=== PATIENT | female | born 1955 | race African-American/Black ===

== ENCOUNTER 2017-07-20 08:22 | Outpatient (CLI) | payer MEDICARE, MEDICAID | END 2017-07-20 08:23 | disposition home or self-care (01) | LOC: BICMRI 08:22 | PROVIDERS: ATTEND Orthopaedic Surgery | DX: M25.512 Pain in left shoulder (principal); S46.812A Strain of other muscles, fascia and tendons at shoulder and upper arm level, left arm, initial encounter; M19.012 Primary osteoarthritis, left shoulder ==

== ENCOUNTER 2017-09-23 15:58 | Outpatient (CLI) | payer MEDICARE, MEDICAID | END 2017-09-23 15:59 | disposition home or self-care (01) | LOC: BICMAMMO 15:58 | PROVIDERS: ATTEND Nurse Practitioner Family | DX: Z12.31 Encounter for screening mammogram for malignant neoplasm of breast (principal) | CPT/HCPCS: 77063; 77067 ==

== ENCOUNTER 2017-10-19 08:59 | Outpatient (CLI) | payer MEDICARE, MEDICAID | END 2017-10-19 09:00 | disposition home or self-care (01) | LOC: BICMRI 08:59 | PROVIDERS: ATTEND Orthopaedic Surgery | DX: M47.22 Other spondylosis with radiculopathy, cervical region (principal); M25.512 Pain in left shoulder | CPT/HCPCS: 72141 ==

== ENCOUNTER 2018-05-09 12:41 | Outpatient (CLI) | payer MEDICARE ==
--- NOTE | 2018-05-09 13:34 | RAD ---
CHEST TWO VIEWS: INDICATIONS: Dyspnea. FINDINGS: The lung walsh are clear. No infiltrates seen. No evidence of vascular congestion. Heart size is normal. Osseous structures are unremarkable. IMPRESSION: No acute findings. POS: H
== END 2018-05-09 12:42 | disposition home or self-care (01) ==
LOC: RAD 12:41
PROVIDERS: ATTEND Internal Medicine Pulmonary Disease
DX: R06.00 Dyspnea, unspecified (principal)
CPT/HCPCS: 71046

== ENCOUNTER 2018-06-06 12:45 | Outpatient (CLI) | payer MEDICARE | END 2018-06-06 12:46 | disposition home or self-care (01) | LOC: CP 12:45 | PROVIDERS: ATTEND Internal Medicine Pulmonary Disease | DX: J44.9 Chronic obstructive pulmonary disease, unspecified (principal) | CPT/HCPCS: 94060; 94727; 94729 ==

== ENCOUNTER 2018-06-23 08:47 | Emergency (ER) | payer MEDICARE ==
[2018-06-23] MEDS ORDERED: Ketorolac Tromethamine 30 MG/ML VIAL ONE (09:08)
== END 2018-06-23 09:47 | disposition home or self-care (01) ==
LOC: ERS 08:47
DX: S16.1XXA Strain of muscle, fascia and tendon at neck level, initial encounter (principal); J44.9 Chronic obstructive pulmonary disease, unspecified; E78.5 Hyperlipidemia, unspecified; I10 Essential (primary) hypertension; F31.9 Bipolar disorder, unspecified; F17.210 Nicotine dependence, cigarettes, uncomplicated; Z71.6 Tobacco abuse counseling; X50.9XXA Other and unspecified overexertion or strenuous movements or postures, initial encounter
CPT/HCPCS: 96372; 99406; J1885

== ENCOUNTER 2018-10-25 10:52 | Emergency (ER) | payer MEDICARE ==
[2018-10-25 11:39] LABS: #Basophils 0.1 thou/uL (0.0-0.2); #Eosinphils 0.1 thou/uL (0.0-0.7); #Lymphocytes 2.2 thou/uL (1.20-3.40); #Monocytes 0.4 thou/uL (0.11-0.59); #Neutrophils 3.3 thou/uL (1.40-6.50); %Basophils 1.7 % (0.0-1.0); %Lymphocytes 36.8 % (21.0-51.0); %Monocytes 5.8 % (0.0-10.0); %Neutrophils 54.7 % (42.0-75.0); Hemoglobin 15.4 g/dL (12.0-16.0); Mean Corpuscular HGB CONC 33.7 g/dL (32.0-36.0); Mean Corpuscular Hemoglobin 33.5 pg (27.0-31.0); Mean Corpuscular Volume 99.4 fL (78.0-98.0); Mean Platelet Volume 6.8 fL (7.4-10.4); Platelet Count 393 thou/uL (130-400); RBC Distribution Width 12.1 % (11.5-14.5); Red Blood Cell (RBC) Count 4.59 mill/uL (4.20-5.40); White Blood Cell (WBC) Count 6.1 thou/uL (4.8-10.8)
--- NOTE | 2018-10-25 11:48 | RAD ---
Radiograph right shoulder 3 views: DATE: 10/25/2018 HISTORY: 63-year-old female with nontraumatic right shoulder pain FINDINGS: Moderate joint space narrowing and mild osteophytosis at AC joint. No radiographic abnormality of gle nohumeral joint visualized. No fracture or subluxation. No rotator cuff calcification. 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
[2018-10-25 11:53] LABS: ALT (SGPT) 17 U/L (8-55); AST (SGOT) 16 U/L (5-34); Albumin 4.3 g/dL (3.4-4.8); Alkaline Phosphatase 78 U/L (40-150); Anion Gap 16 mmol/L (10-20); BUN (Urea Nitrogen) 18 mg/dL (9.8-20.1); Bilirubin, Total 0.6 mg/dL (0.2-1.2); Calc. Creatinine Clearance 0 mL/min (70-130); Calcium 10.3 mg/dL (7.8-10.44); Carbon Dioxide 22 mmol/L (23-31); Chloride 102 mmol/L (98-107); Estimated GFR-MDRD 81; Globulin 3.7 g/dL (2.4-3.5); Glucose 131 mg/dL (80-115); Potassium 3.8 mmol/L (3.5-5.1); Sodium 136 mmol/L (136-145)
[2018-10-25] MEDS ORDERED: Acetaminophen 500 MG TAB ONE (11:58)
== END 2018-10-25 12:14 | disposition home or self-care (01) ==
LOC: ERS 10:52
DX: M19.011 Primary osteoarthritis, right shoulder (principal); M79.662 Pain in left lower leg; J44.9 Chronic obstructive pulmonary disease, unspecified; E78.5 Hyperlipidemia, unspecified; I10 Essential (primary) hypertension; F17.210 Nicotine dependence, cigarettes, uncomplicated; F31.9 Bipolar disorder, unspecified; Z79.51 Long term (current) use of inhaled steroids; Z79.899 Other long term (current) drug therapy
CPT/HCPCS: 36415; 80053; 85025

== ENCOUNTER 2018-12-28 14:21 | Outpatient (CLI) | payer MEDICARE ==
--- NOTE | 2018-12-28 14:59 | RAD ---
EXAM: Chest 2 views: HISTORY: Dyspnea COMPARISON: 05/09/2018 FINDINGS: There is a normal-sized cardiomediastinal silhouette. There is no evidence of consolidation, mass, or pleural effusion. The bones are unremarkable. IMPRESSION: No evidence of acute cardiopulmonary disease
== END 2018-12-28 14:22 | disposition home or self-care (01) ==
LOC: RAD 14:21
PROVIDERS: ATTEND Internal Medicine Pulmonary Disease
DX: R06.00 Dyspnea, unspecified (principal)
CPT/HCPCS: 71046

== ENCOUNTER 2019-01-20 04:13 | Emergency (ER) | payer MEDICARE ==
--- NOTE | 2019-01-20 07:50 | CT ---
PRELIMINARY REPORT/[facility]/EMERGENCY AFTER HOURS PROCEDURE: PROCEDURE INFORMATION: Exam: CT Head Without Contrast Exam date and time: 01/20/2019 4:44 AM Clinical history: 63 years old, female; Injury or trauma; Initial encounter; Blunt trauma (contusions or hematomas); Without loss of consciousness; Patient HX: 63 year old female brought by ambulance for evaluation of injuries S/P fall which occurred at approx. 0300 this morning at home. PT tripped o nik a bag while trying to get up to use the bathroom. Reports hitting her head, denies losing conscio usness. Not on blood thinners, no new numbness or tingling. PT C/O head pain and knee pain related to the fall, PT says she scraped her knees. TECHNIQUE: Imaging protocol: Computed tomography of the head without contrast. COMPARISON: No relevant prior studies available. FINDINGS: Brain: No mass effect or midline shift. No hemorrhage. Patchy whitte matter hypodensities are nonspec ific but may be seen in small vessel chronic ischemic changes. Ventricles: No ventriculomegaly. Bones/joints: Suspect inferior right orbital wall fracture. No acute fracture. Sinuses: Small right maxillary sinus fluid. Mastoid air cells: Visualized mastoid air cells are well aerated. Soft tissues: Unremarkable. IMPRESSION: No acute intracranial abnormality. Suspect inferior right orbital wall fracture. Small right maxillary sinus fluid. Thank you for allowing us to participate in the care of your patient. Dictated and Authenticated by: Melisa Acuña MD 01/20/2019 5:13 AM Central Time ([place] & [place]) FINAL REPPORT CT BRAIN WITHOUT CONTRAST: I agree with the preliminary report given by Kelsi. POS: [facility]
--- NOTE | 2019-01-20 08:39 | RAD ---
RIGHT KNEE 4 VIEWS: Date: 01/20/19 HISTORY: Fall, right knee pain. FINDINGS/IMPRESSION: No acute fracture or dislocation is seen. Mild degenerative changes are present. POS: TOM
== END 2019-01-20 05:58 | disposition home or self-care (01) ==
LOC: ERS 04:13
DX: S02.31XA Fracture of orbital floor, right side, initial encounter for closed fracture (principal); I10 Essential (primary) hypertension; J44.9 Chronic obstructive pulmonary disease, unspecified; E78.5 Hyperlipidemia, unspecified; F17.210 Nicotine dependence, cigarettes, uncomplicated; F31.9 Bipolar disorder, unspecified; Z79.899 Other long term (current) drug therapy; W18.30XA Fall on same level, unspecified, initial encounter; Y92.008 Other place in unspecified non-institutional (private) residence as the place of occurrence of the external cause
CPT/HCPCS: 70450

== ENCOUNTER 2019-10-29 09:12 | Outpatient (CLI) | payer MEDICARE ==
--- NOTE | 2019-10-29 11:17 | CT ---
CT CHEST WITH CONTRAST: HISTORY: Palpable nodule. COMPARISON: None. FINDINGS: Calcified granuloma of the anterior segment left upper lobe. No suspicious pulmonary nodule. No pne umothorax. NO effusion. Mild atelectasis within the right lung base. The tracheobronchial tree is patent. Thyroid is unremarkable. No mediastinal adenopathy. No abnormal pericardial fluid. There is some hyperenhancement of the gallbladder on the bottom 3-4 images incompletely evaluated. There is a nodule well defined of the left adrenal body measuring up to 14 mm. Thoracic spine is intact. Aortic contour is normal. No focal abnormality over the region of interest marker. No soft tissue mass. No osseous mass. The region of interest markers near the right sternoclavicular joint which is mildly hypertrophic and co uld be a source of the palpable area of interest. No underlying suspicious abnormality. Calcific tendinosis of the left rotator cuff. IMPRESSION: 1. Near the region of interest marker over the right paracentral chest is the right 1st costosternal joint which is mildly hypertrophic with osteophyte formation could be the source of the palpable abn ormality. No suspicious malignant process is appreciated. 2. Left adrenal nodule measuring 14 mm as well as some hyperenhancement of the gallbladder incomplet cha evaluated on this exam. A dedicated adrenal protocol CT or MRI is recommended and this can also evaluate the gallbladder at the same time. 3. No suspicious pulmonary nodule. 4. No acute intrathoracic abnormality. No evidence for pneumonia. POS: H
[2019-10-29] MEDS ORDERED: Iopamidol 370 76% 100 ML VIAL ONE (11:53)
== END 2019-10-29 09:13 | disposition home or self-care (01) ==
LOC: BICCT 09:12
DX: R91.1 Solitary pulmonary nodule (principal); R05 Cough; J44.9 Chronic obstructive pulmonary disease, unspecified; R06.02 Shortness of breath; E78.2 Mixed hyperlipidemia; R09.89 Other specified symptoms and signs involving the circulatory and respiratory systems; G47.09 Other insomnia; F31.61 Bipolar disorder, current episode mixed, mild; I25.10 Atherosclerotic heart disease of native coronary artery without angina pectoris; F17.210 Nicotine dependence, cigarettes, uncomplicated; M25.50 Pain in unspecified joint; I10 Essential (primary) hypertension; E27.8 Other specified disorders of adrenal gland; Z68.25 Body mass index [BMI] 25.0-25.9, adult
CPT/HCPCS: 36415; 71260; 80053; 80061; 82306; 82565; 84443; 85025; Q9967

== ENCOUNTER 2019-11-18 11:17 | Inpatient (IN) | payer MEDICARE, OTHER ==
--- NOTE | 2019-11-18 11:49 | RAD ---
RADIOGRAPH CHEST 1 VIEW: DATE: 11/18/2019 HISTORY: 64 year old female smoker with fatigue FINDINGS: The thoracic aorta is tortuous and ectatic. There is no evidence of airspace density, pulmonary edema , or pneumothorax. The lateral costophrenic angles are not effaced. No cardiomegaly. No interval change since 12/28/2018. IMPRESSION: 1) No acute cardiopulmonary findings. 2) ectasia of thoracic aorta.
[2019-11-18 12:14] LABS: Hemoglobin 12.8 g/dL (12.0-16.0); Mean Corpuscular HGB CONC 33.3 g/dL (32.0-36.0); Mean Corpuscular Hemoglobin 34.7 pg (27.0-31.0); Mean Platelet Volume 7.8 fL (7.4-10.4); Platelet Count 393 thou/uL (130-400); RBC Distribution Width 13.7 % (11.5-14.5); Red Blood Cell (RBC) Count 3.69 mill/uL (4.20-5.40)
[2019-11-18 12:16] LABS: INR-International Normal Ratio 0.9; PTT 27.9 sec (22.9-36.1); Prothrombin Time 12.4 sec (12.0-14.7)
[2019-11-18 12:30] LABS: Eosinophils 2 % (0-10); Lymphocytes 20 % (21-51); MDiff Complete? YES; Monocytes 5 % (0-10); Neutrophil 70 % (42-75); Platelet Morphology Comment Appears Adequate; Reactive Lymphocytes 2 % (0-10); Vacuoles SLIGHT; White Blood Cell (WBC) Count 10.6 thou/uL (4.8-10.8)
[2019-11-18 12:32] LABS: ALT (SGPT) 561 U/L (8-55); AST (SGOT) 573 U/L (5-34); Albumin 3.4 g/dL (3.4-4.8); Alkaline Phosphatase 1234 U/L (40-110); Anion Gap 11 mmol/L (10-20); BUN (Urea Nitrogen) 8 mg/dL (9.8-20.1); Bilirubin, Total 21.8 mg/dL (0.2-1.2); CK (CPK) 115 U/L (29-168); Calc. Creatinine Clearance 0 mL/min (70-130); Calcium 9.3 mg/dL (7.8-10.44); Carbon Dioxide 29 mmol/L (23-31); Chloride 99 mmol/L (98-107); Estimated GFR-MDRD Greater than 90; Globulin 3.3 g/dL (2.4-3.5); Glucose 91 mg/dL (80-115); Lipase 38 U/L (8-78); Potassium 3.2 mmol/L (3.5-5.1); Protein, Total 6.7 g/dL (6.0-8.3); Sodium 136 mmol/L (136-145)
[2019-11-18 12:34] LABS: Bilirubin Large (Negative); Blood, Urine Trace (Negative); Glucose, Urine (Dipstick) Negative (Negative); Ketone, Urine Trace mg/dL (Negative); Leukocyte Trace (Negative); Nitrite Negative (Negative); Protein, Urine (Dipstick) 30 mg/dL (Neg-Trace); Specific Gravity, Urine 1.025 (1.005-1.030); pH, Urine 6.5 (5.0-9.0)
[2019-11-18 12:38] LABS: Clarity Clear (Clear)
--- NOTE | 2019-11-18 13:41 | ULT ---
RIGHT UPPER QUADRANT ULTRASOUND: INDICATIONS: History of right upper quadrant abdominal pain with fatigue and dysuria. FINDINGS: There is layering gallbladder sludge gallbladder wall thickening and dilatation of the common and int rahepatic biliary ductal system. The common bile duct measures on average 9.6 mm. The liver measures 18 cm. No sonographic Wahl sign is reported. The pancreas is largely obscured. The visualized aspec ts appear within normal limits. Appropriate flow is seen within the portal vein. No free fluid is jo ntified. The right kidney measures 11.4 cm in length without evidence of hydronephrosis. IMPRESSION: Layered gallbladder sludge with mild gallbladder wall thickening but no positive sonographic sign or definite pericholecystic fluid. Findings are equivocal for acute cholecystitis. There is dilatation o f the common bile duct and intrahepatic biliary ducts. Distal obstructing process such as stone or ma ss is not excluded. Would recommend consideration for an MRCP examination to evaluate for distal obst ructing sludge, stone or mass. Alternatively an endoscope retrograde cholangiopancreatography may be helpful and a gastroenterology consultation will be necessary. Mild hepatomegaly. POS: BH
[2019-11-18] MEDS ORDERED: Bisacodyl 10 MG SUPP PR PRN (15:54)
[2019-11-18] MEDS ORDERED: Calcium Carbonate 500 MG ChewTAB PO PRN (15:54)
[2019-11-18] MEDS ORDERED: Senokot S 8.6-50 MG TAB PO PRN (15:54)
[2019-11-18] MEDS ORDERED: Guaifenesin DM 100-10/5 ML UDCUP PO PRN (15:54)
[2019-11-18 16:10] LABS: Hep B Surf Ag Non-Reactive S/CO (NonReactive)
[2019-11-18 16:15] LABS: Acetaminophen Less than 6.0 mcg/mL (10.0-30.0); Alcohol Less than 10 mg/dL (Less than 10); Salicylate Less than 8.0 mg/dL (15.0-30.0)
--- NOTE | 2019-11-18 16:54 | HP ---
REASON FOR ADMISSION: Possible obstructive jaundice. HISTORY OF PRESENTING ILLNESS: The patient gives a history of noticing her eyes being yellow and her urine being dark from last 3 days. She also developed bilateral lower quadrant abdominal pain. This pain was 2 to 3 out of 10 in intensity and was more of a colic. She also noticed some mild pain in the epigastric region, which was 1 to 2 out of 10. The patient has had loss of appetite and was unable to eat any food from last 2 days. She is feeling very dizzy and weak and finally developed a headache too. All of this prompted her to come back to the emergency room. She had come on the 28 of October here after having a mechanical fall when her foot got hung up with her carry bag and fell at home with face down. She was found to have had right orbital fracture and has seen a surgeon and has had outpatient appointment to see a surgeon in [place] as well. She was advised to be careful while sneezing. Otherwise, no surgical intervention was suggested for the same. No complaints of nausea. Has not started any new medication. The patient states she quit drinking 2 years back. PAST MEDICAL AND SURGICAL HISTORY: COPD, hypertension, dyslipidemia, history of hep C from last 15 years and has not had any treatment. 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 Prior history of upper endoscopy with esophageal dilatation done; colonoscopy x2 with no evidence of malignancy as far as she knows, the last one was 5 years back; tubal ligation; history of bipolar disorder; prior alcohol abuse, quit 2 years back. CURRENT MEDICATIONS: The patient is on 1. Atorvastatin 10 mg p.o. daily. 2. Symbicort inhaler 160/4.5 mcg 2 puffs twice daily. 3. Albuterol inhaler q.6 hourly p.r.n. 4. Hydralazine 25 mg twice daily. 5. Isosorbide dinitrate 20 mg twice daily. 6. Clonidine 0.1 mg p.o. twice daily. ALLERGIES: TO ASPIRIN. PERSONAL HISTORY: Smokes half pack a day. Quit drinking alcohol 2 years back prior to which patient was drinking more than 30 beers daily for almost 20 years or so. Does not abuse drugs. FAMILY HISTORY: Mother at the age of 76. She has had history of diabetes and hypertension. Father at the age of 79. He has had the same medical problems as her mom, that is diabetes and hypertension. CODE STATUS: Full. Power of erisa attorney is her daughter, Ms. Selena Marinelli. REVIEW OF SYSTEMS: CONSTITUTIONAL: Negative for weight loss or gain, ability to conduct usual activities. SKIN: Negative for rash, itching. EYES: Negative for double vision, pain. ENT/MOUTH: Negative for nose bleeding, neck stiffness, pain, tenderness. CARDIOVASCULAR: Negative for palpitations, dyspnea on exertion, orthopnea. RESPIRATORY: Negative for shortness of breath, wheezing, cough, hemoptysis, fever or night sweats. GASTROINTESTINAL: Negative for poor appetite, abdominal pain, heartburn, nausea, vomiting, constipation, or diarrhea. GENITOURINARY: Negative for urgency, frequency, dysuria, nocturia. MUSCULOSKELETAL: Negative for pain, swelling. NEUROLOGIC/PSYCHIATRIC: Negative for anxiety, depression. ALLERGY/IMMUNOLOGIC: Negative for skin rash, bleeding tendency. PHYSICAL EXAMINATION: GENERAL: The patient is a 64-year-old female who is currently not in any acute distress. VITAL SIGNS: Blood pressure 104/60, pulse 84 per minute, respiratory rate 18 per minute, temperature 98.9 degrees Fahrenheit, saturating 97% on room air. NECK: Supple, no elevated JVD. EYES: The pupils are reacting to light. There is severe icterus. ORAL CAVITY: Mucous membranes are dry. No exudates or congestion. CARDIOVASCULAR: S1, S2 heard, regular rhythm. RESPIRATORY: Air entry 1+ bilateral. Scattered rhonchi plus bilateral. ABDOMEN: Soft, bowel sounds heard. Mild tenderness on deep palpation in the right upper quadrant. The patient has some tenderness in the suprapubic area as well. No rigidity or guarding. EXTREMITIES: No peripheral edema or calf tenderness. VASCULAR: Peripheral pulses 1+ bilateral, no ischemic ulcerations or gangrene. CENTRAL NERVOUS SYSTEM: No gross focal deficits noted. The patient is alert, awake, oriented well. PSYCHIATRIC: Patient's mood is euthymic. No hallucinations or delusions. LABORATORY DATA: Chest x-ray done shows no acute cardiopulmonary abnormality. Right upper quadrant ultrasound done shows layered gallbladder sludge with mild gallbladder wall thickening, but no positive sonographic sign or definite pericholecystic fluid. Findings are equivocal for acute cholecystitis. There is dilatation of the common bile duct and intrahepatic biliary ducts. Common bile duct measures 9.6 mm. MRCP is recommended. Mild hepatomegaly. White count of 10, H and H 12 and 38, platelet count is 393, MCV is 104 with 70% neutrophils. PT, INR, PTT 12, 0.9 and 27. Potassium 3.2, serum bicarb 29, BUN 8, creatinine 0.7. Total bilirubin 21.8, AST 573, ALT 561, alkaline phosphatase 1234. Ammonia 48. Albumin 3.4. Lipase is 38. CLINICAL IMPRESSION AND PLAN: Patient will be admitted to medical floor for likely obstructive jaundice. MRCP stat has been ordered. Dr. Tian has been consulted from the ER. She will be kept n.p.o. for now. Normal saline at 100 mL per hour. We will also continue clonidine, hydralazine, Symbicort inhaler and DuoNeb q.6 hourly for now. The patient has had prior heavy alcohol usage and quit 2 years back. She also has history of hepatitis C from last 15 years and has not had any further workup on that. We will obtain a hepatitis C quantitative PCR along with genotype as well. We will continue to closely monitor her on medical floor. The patient also mentioned at the end of my interview that she has lost nearly 20 pounds in the last 2 months now. Job ID: [id number]
[2019-11-18 17:41] VITALS: BMI 25.0
[2019-11-18] MEDS ORDERED: Morphine 2 MG/ML SYRINGE SLOW IVP PRN (18:15)
[2019-11-18] MEDS: Piperacillin/Tazobactam 3.375 GM in Sodium Chloride 0.9% 100 ML IVPB SCH ×2 (18:25→23:15)
[2019-11-18] MEDS: Sodium Chloride 0.9% 1,000 ML IV SCH (18:26)
[2019-11-18] MEDS: Morphine 4 MG/ML VIAL SLOW IVP PRN ×2 (18:36→22:27)
--- NOTE | 2019-11-18 18:49 | MRI ---
MRI OF ABDOMEN WITHOUT CONTRAST MRCP: History: Abdominal pain, abnormal gallbladder ultrasound. FINDINGS: Absence of IV contrast reduces the sensitivity of the exam. There is extrahepatic biliary duct dilatation of the common bile duct measuring 12 mm in diameter. No gallstones or cholelithiasis are seen. There is mild thickening of the gallbladder wall. A 1 cm mild ly hyper T2 intense focus is seen in the right lobe of the liver which does not have the same intensi ty of CSF, to be characterized as a simple cyst. The spleen, pancreas, and right adrenal gland normal. Tiny bilateral renal cysts are present. There is a 2 cm left adrenal nodule with signal dropout on out of phase images, consistent with a shanelle ign adenoma. No free fluid or lymphadenopathy is seen. The aorta is normal caliber. The bone marrow signal is norm al. IMPRESSION: Intrahepatic biliary duct dilatation without cholelithiasis or choledocholithiasis. Further evaluatio n with ERCP would be helpful. 2. Indeterminate 1 cm right liver lobe lesion. Follow up should be performed with a contrast enhanced MRI in 3 months. 3. Mild gallbladder wall thickening. If there is concern for acute cholecystitis, a HIDA scan should be performed. 4. Left adrenal adenoma. POS: OFF
[2019-11-18] MEDS: Mometasone 200 MCG/Formoterol 5 MCG 120 PUFF INHALER INH SCH (18:51)
[2019-11-18 19:46] LABS: HBSAg Index 0.12 S/CO (0-0.99)
[2019-11-18] MEDS: cloNIDine 0.1 MG TAB PO SCH (20:50)
[2019-11-18] MEDS: hydrALAZINE 25 MG TAB PO SCH (20:51)
[2019-11-18] MEDS: Famotidine 20 MG TAB PO SCH (20:51)
--- NOTE | 2019-11-18 22:07 | CON ---
DATE OF CONSULTATION: 11/18/2019 REASON FOR CONSULTATION: Elevated LFTs, right upper quadrant abdominal pain. CONSULTING PROVIDER: Alfredo Burrows. HISTORY OF PRESENT ILLNESS: The patient is a 64-year-old female with past medical history of COPD, hypertension, hyperlipidemia, bipolar disorder, and chronic hepatitis C infection (naive to treatment), presenting with complaints of jaundice and right upper quadrant abdominal pain. She states that she was in her usual state of health until approximately 3 days ago when she began having increasing right upper quadrant/midepigastric abdominal pain that she characterized as a sharp-type sensation, was intermittent, occurring 3 times per day, was nonradiating and reached a severity of 8/10. The pain was worse with increased physical activity and having a bowel movement with having to strain in order to facilitate defecation, better with actually eating a meal. This was associated with increased diarrhea, having approximately 1-3 solid bowel movements per day ([place] 4) with intermittent straining in order to facilitate defecation. This was also associated with increased scleral icterus and weight loss of approximately 20 pounds over the last 3 months unintentionally. With the worsening of this abdominal pain and the worsening yellowing of her eyes as well as discoloration of her urine, it prompted her to seek healthcare assistance at the [facility] ER. While in the ER, her workup was notable for significantly elevated LFTs concerning for an obstructive-type process within the biliary tree and subsequently admitted to the hospital for further evaluation. Currently, the patient states that she has increased dizziness, especially with movements. Has been having dysuria for the last 2 to 3 days in addition to nausea and vomiting of nonbloody emesis. She also complains of intermittent dysphagia that has been present intermittently for the last 10 years and for which the patient had undergone an upper endoscopy approximately 10 years ago that they "stretched my throat out for." Of note, the patient was also diagnosed with chronic hepatitis C infection in [place] around 10 years ago. At that time, she had an MRI of her liver that she states had "a spot" somewhere along the anterior aspect of her liver. This was never followed up, and she did not seek treatment for her chronic hepatitis C at that time. Currently, she denies any fevers, chills, hematemesis, melena, hematochezia, or constipation. REVIEW OF SYSTEMS: A 10-category review of systems was obtained with all responses negative except for the pertinent positives as listed in HPI. PAST MEDICAL HISTORY: As per HPI. PAST SURGICAL HISTORY: EGD, colonoscopy, bilateral tubal ligation. FAMILY HISTORY: Denies any GI malignancies. SOCIAL HISTORY: Smokes tobacco, 1/2 pack per day. Quit drinking alcohol 2 years ago but had been drinking 20-30 beers daily for approximately 20 years. Currently denies any illicit drug use. OUTPATIENT MEDICATIONS: Reviewed. ALLERGIES: ASPIRIN/NSAIDS. PHYSICAL EXAMINATION: VITAL SIGNS: Temperature is 99.7, pulse 70, blood pressure 161/84, respiratory rate 16, saturating 97% on room air. GENERAL: The patient was lying in bed in no acute distress. Alert and oriented x4. HEENT: Normocephalic, atraumatic. NECK: Supple. No JVD or scleral icterus noted. CARDIOVASCULAR: Regular rate and rhythm with no discernible murmurs, gallops, or rubs. RESPIRATORY: Clear to auscultation bilaterally with no discernible wheezes or rales abdomen normoactive bowel sounds. Soft, nondistended. Tenderness to palpation in the midepigastric right upper quadrant and right lower quadrant. EXTREMITIES: No cyanosis, clubbing, or edema. LABORATORY DATA: CBC with a white blood cell count of 10.6, hemoglobin 12.8, hematocrit 38.4, platelets 393. INR 0.9. Chemistry with a sodium 136, potassium 3.2, chloride 99, CO2 of 29, BUN 8, creatinine 0.7, glucose 91. AST 573, ALT 561, alkaline phosphatase 1234, total bilirubin 21.8, albumin 3.4, lipase 38. IMAGING DATA: Right upper quadrant ultrasound was obtained on November 18, 2019, which showed layering sludge within the gallbladder and gallbladder wall thickening but no other evidence of cholecystitis. Dilatation of both the intra and extrahepatic biliary tree was seen with the common bile duct measuring 9.6 mm in size. Mild hepatomegaly was also noted, but no observed stone was seen within the common bile duct. ASSESSMENT AND PLAN: The patient is a 64-year-old female with past medical history of chronic obstructive pulmonary disease, hypertension, hyperlipidemia, bipolar disorder, chronic hepatitis C infection, stated liver lesion 10 years ago on an MRI, presenting with right upper quadrant abdominal pain and elevated LFTs concerning for choledocholithiasis versus pancreatic/hepatic malignancy. Elevated LFTs/right upper quadrant abdominal pain. The patient is presenting with a fairly acute onset of right upper quadrant abdominal pain characterized as a sharp-type sensation and reaching a severity of 8/10. On reviewing the patient's chart, she had relatively normal LFTs approximately 3 to 4 weeks ago when she presented to the ER secondary to sustaining a fall and injury to the orbit of her eye, now presenting with significantly elevated LFTs in a fairly obstructive-type pattern, but with relatively little pain associated with the degree of the hyperbilirubinemia. At this time, her LFTs show primarily a cholestatic pattern, although with the significant elevation in all of them, again is concerning for an obstructive-type pattern which could be secondary to a pancreatic or hepatic malignancy (likely pancreatic if both intra and extra hepatic biliary systems are dilated) or choledocholithiasis. Differential could also include cholangiocarcinoma, especially with the significantly elevated alkaline phosphatase and bilirubin. RECOMMENDATIONS: 1. Would obtain an MRCP of the liver for further evaluation of her liver, pancreas and the biliary system looking for hepatic malignancy, pancreatic malignancy, and possible choledocholithiasis. 2. Would continue to trend her LFTs. 3. We will place the patient on Zosyn 3.375 g every 6 hours for antibiotic prophylaxis related to possible choledocholithiasis. 4. Would make the patient n.p.o. at midnight in anticipation of ERCP tomorrow with possible stent placement based on the findings on MRCP. 5. Pain control per primary team. We will continue to follow. Please call with any questions. Job ID: [id number]
[2019-11-18 23:05] LABS: Amphetamine Not Detected (NotDetected); Barbiturates Screen Not Detected (NotDetected); Benzodiazepine Screen Not Detected (NotDetected); Cocaine Metabolite Screen Detected (NotDetected); Medtox Control Line Valid? VALID (VALID); Medtox Reader # READER 4; Methadone Not Detected (NotDetected); Methamphetamine Not Detected (NotDetected); Opiate Screen Detected (NotDetected); Oxycodone Screen Not Detected (NotDetected); Phencyclidine (PCP) Not Detected (NotDetected); THC/Cannabinoid Screen Detected (NotDetected); Tricyclic Screen Not Detected (NotDetected)
[2019-11-19] MEDS: Sodium Chloride 0.9% 1,000 ML IV SCH ×3 (02:41→14:06)
[2019-11-19] MEDS: Piperacillin/Tazobactam 3.375 GM in Sodium Chloride 0.9% 100 ML IVPB SCH ×3 (05:08→18:40)
[2019-11-19] MEDS: Morphine 4 MG/ML VIAL SLOW IVP PRN ×2 (05:09→12:48)
[2019-11-19 05:57] LABS: ALT (SGPT) 438 U/L (8-55); AST (SGOT) 397 U/L (5-34); Albumin 2.8 g/dL (3.4-4.8); Alkaline Phosphatase 998 U/L (40-110); Anion Gap 12 mmol/L (10-20); BUN (Urea Nitrogen) 6 mg/dL (9.8-20.1); Bilirubin, Total 20.4 mg/dL (0.2-1.2); Calc. Creatinine Clearance 87 mL/min (70-130); Calcium 8.2 mg/dL (7.8-10.44); Carbon Dioxide 26 mmol/L (23-31); Chloride 102 mmol/L (98-107); Estimated GFR-MDRD Greater than 90; Globulin 2.5 g/dL (2.4-3.5); Glucose 83 mg/dL (80-115); Protein, Total 5.3 g/dL (6.0-8.3); Sodium 137 mmol/L (136-145)
[2019-11-19 06:05] LABS: Critical Call Chemistry NUR.GEG@0605; Potassium 2.9 mmol/L (3.5-5.1)
[2019-11-19 06:10] LABS: #Basophils 0.1 thou/uL (0.0-0.2); #Eosinphils 0.4 thou/uL (0.0-0.7); #Lymphocytes 4.1 thou/uL (1.20-3.40); #Monocytes 0.4 thou/uL (0.11-0.59); #Neutrophils 3.9 thou/uL (1.40-6.50); %Eosinophils 4.9 % (0.0-10.0); %Lymphocytes 45.6 % (21.0-51.0); %Monocytes 4.3 % (0.0-10.0); %Neutrophils 44.3 % (42.0-75.0); Band 2 % (5-11); Eosinophils 5 % (0-10); Hemoglobin 10.4 g/dL (12.0-16.0); Hypochromia SLIGHT = 6-15 cells (100X) (0-5/hpf); Lymphocytes 30 % (21-51); MDiff Complete? YES; Mean Corpuscular HGB CONC 34.4 g/dL (32.0-36.0); Mean Corpuscular Hemoglobin 36.4 pg (27.0-31.0); Mean Platelet Volume 7.7 fL (7.4-10.4); Monocytes 8 % (0-10); Neutrophil 55 % (42-75); Platelet Count 312 thou/uL (130-400); Platelet Morphology Comment Appears Adequate; RBC Distribution Width 13.8 % (11.5-14.5); Red Blood Cell (RBC) Count 2.87 mill/uL (4.20-5.40); White Blood Cell (WBC) Count 8.9 thou/uL (4.8-10.8)
[2019-11-19] MEDS ORDERED: Potassium Chloride 40 MEQ in Sodium Chloride 0.9% 250 ML 250 ML IVPB SCH (07:00)
[2019-11-19] MEDS: Mometasone 200 MCG/Formoterol 5 MCG 120 PUFF INHALER INH SCH ×2 (07:08→18:44)
[2019-11-19 07:45] LABS: SARS-CoV-2 NAA Rapid Test Not Detected (NotDetected)
[2019-11-19] MEDS ORDERED: Indomethacin 50 MG SUPP ONE (08:22)
[2019-11-19] MEDS ORDERED: Iothalamate Meglumine 60% 50 ML VIAL FS ONE (08:22)
[2019-11-19] MEDS ORDERED: Fentanyl 100 MCG/2 ML VIAL ONE ×2 (08:47→11:03)
[2019-11-19] MEDS ORDERED: Potassium Chloride 20 MEQ TAB PO SCH ×2 (09:00→14:15)
[2019-11-19] MEDS ORDERED: Rocuronium Bromide 10 MG/ML (10ML VIAL) ONE (10:01)
[2019-11-19] MEDS ORDERED: Lidocaine 1% PF 5 ML VIAL ONE (10:01)
[2019-11-19] MEDS ORDERED: Ondansetron PF 4 MG/2 ML Vial ONE (10:01)
[2019-11-19] MEDS ORDERED: PROPOFOL 200 MG/20 ML VIAL ONE (10:01)
[2019-11-19] MEDS ORDERED: Glycopyrrolate 0.2 MG/ML 5 ML SYRINGE ONE (10:01)
[2019-11-19] MEDS: cloNIDine 0.1 MG TAB PO SCH ×2 (10:41→21:55)
[2019-11-19] MEDS: Famotidine 20 MG TAB PO SCH ×2 (10:41→21:55)
[2019-11-19] MEDS: hydrALAZINE 25 MG TAB PO SCH ×2 (10:41→21:55)
[2019-11-19 10:56] LABS: HBCM Index 0.13 S/CO (0-0.79); Hep A IgM AB Non-Reactive (NonReactive); Hep A IgM S/CO 0.59 S/CO (0-0.79); Hepatitis B Core IgM Abs Non-Reactive (NonReactive)
[2019-11-19 11:19] LABS: Hep C IgG Ab Reflex HepC Qnt (NonReactive); Hep C Index 10.99 S/CO (0-0.79)
[2019-11-19] MEDS: Ondansetron PF 4 MG/2 ML Vial IVP PRN ×2 (12:45→20:09)
--- NOTE | 2019-11-19 13:14 | PDOC.HOSPP ---
- Subjective Encounter Date: 11/19/19 Encounter Time: 09:00 Subjective: abd pain is better, no nausea or vomiting is going down for ercp no c/o palp or chest pain - Objective Vital Signs & Weight: Vital Signs (12 hours) Temp Pulse Resp BP Pulse Ox 11/19/19 07:29 98.6 F 59 L 18 126/78 98 11/19/19 07:05 56 L 16 99 11/19/19 04:00 98.4 F 56 L 18 122/74 99 Weight Weight 141 lb 1 oz I&O: 11/18/19 11/19/19 11/20/19 06:59 06:59 06:59 Intake Total 1100 Balance 1100 Result Diagrams: 11/19/19 05:24 11/19/19 05:24 Hospitalist ROS - Medication Medications: Active Medications Generic Name Dose Route Start Last Admin Trade Name Freq PRN Reason Stop Dose Admin Albuterol/Ipratropium 3 ml 11/18/19 19:00 11/19/19 07:05 Duoneb NEB 3 ml [id number] JANENE Administration Clonidine 0.1 mg 11/18/19 21:00 11/19/19 10:41 Catapres PO Not Given BID JANENE Famotidine 20 mg 11/18/19 21:00 11/19/19 10:41 Pepcid PO Not Given BID JANENE Guaifenesin/Dextromethorphan 15 ml 11/18/19 15:54 11/18/19 20:51 Robitussin Dm PO 15 ml Q4H PRN Administration Cough Hydralazine HCl 25 mg 11/18/19 21:00 11/19/19 10:41 Apresoline PO Not Given BID JANENE Sodium Chloride 1,000 mls @ 100 mls/hr 11/18/19 16:00 11/19/19 05:11 Normal Saline 0.9% IV 1,000 mls .Q10H JANENE Administration Piperacillin Sod/Tazobactam 100 mls @ 200 mls/hr 11/18/19 18:00 11/19/19 12: 49 Sod 3.375 gm/ Sodium Chloride IVPB 100 mls Q6HR JANENE Administration Mometasone Furoate/Formoterol Fumar 2 puff 11/18/19 18:30 11/19/19 07:08 Dulera 200 Mcg/5 Mcg Inhaler INH 2 puff BID-RT JANENE Administration Morphine Sulfate 2 mg 11/18/19 18:25 11/19/19 12:48 Morphine SLOW IVP 2 mg Q4H PRN Administration Mild Pain (1-3) Ondansetron HCl 4 mg 11/18/19 15:54 11/19/19 12:45 Zofran IVP 4 mg Q6H PRN Administration Nausea/Vomiting - Exam General Appearance: awake alert Eye: PERRL, anicteric sclera ENT: no oropharyngeal lesions, dry oral mucosa Neck: supple, no JVD Heart: RRR, no murmur Respiratory: no wheezes, no rales, rhonchi Gastrointestinal: soft, non-tender, non-distended, normal bowel sounds, no guarding, no rigidity Extremities: no cyanosis, no edema Neurological: cranial nerve grossly intact, no focal deficits Psychiatric: normal affect, A&O x 3 Hosp A/P (1) Jaundice Code(s): R17 - UNSPECIFIED JAUNDICE Status: Acute (2) COPD (chronic obstructive pulmonary disease) Status: Chronic Qualifiers: COPD type: chronic bronchitis (3) HTN (hypertension) Code(s): I10 - ESSENTIAL (PRIMARY) HYPERTENSION Status: Chronic Qualifiers: Hypertension type: essential hypertension Qualified Code(s): I10 - Essential (primary) hypertension (4) Hepatitis C Code(s): B19.20 - UNSPECIFIED VIRAL HEPATITIS C WITHOUT HEPATIC COMA Status: Chronic Qualifiers: Viral hepatitis chronicity: chronic Hepatic coma status: without hepatic coma Qualified Code(s): B18.2 - Chronic viral hepatitis C (5) Substance abuse Code(s): F19.10 - OTHER PSYCHOACTIVE SUBSTANCE ABUSE, UNCOMPLICATED Status: Acute (6) Tobacco abuse Code(s): Z72.0 - TOBACCO USE Status: Chronic (7) Elevated LFTs Code(s): R79.89 - OTHER SPECIFIED ABNORMAL FINDINGS OF BLOOD CHEMISTRY Status : Acute - Plan await ERCP results continue empiric zosyn, dulera inh, duonebs, clonidine and hydralazine hemostable lft's are very slowly trending down replace potassium iv then po x 3 doses blood for hep C quantitative titers and genotype was taken 11/17 MRCP did not reveal a mass or gross obstructive etiology in the ducts.
--- NOTE | 2019-11-19 14:25 | RAD ---
ERCP: HISTORY: Choledocholithiasis. FINDINGS/IMPRESSION: Six spot fluoroscopic intraoperative images during an ERCP demonstrate opacification of dilated commo n bile duct and hepatic ducts and their branches, and placement of a biliary stent. POS: JUANYA
--- NOTE | 2019-11-19 16:28 | OP ---
DATE OF PROCEDURE: 11/19/2019 PROCEDURES PERFORMED: 1. Endoscopic retrograde cholangiopancreatography with sphincterotomy. 2. Biliary bladder brushings. 3. Stent placement. INDICATIONS FOR PROCEDURE: Elevated LFTs, abnormal GI imaging showing dilation of the biliary tree. DESCRIPTION OF PROCEDURE: After the risks and benefits of the procedure were explained to the patient including risks of bleeding, infection, perforation, reactions to anesthesia, aspiration, post-ERCP pancreatitis, and/or pain, informed consent was obtained. The patient was then taken to the endoscopy suite where general anesthesia was administered followed by endotracheal tube intubation. Once the patient was adequately sedated and intubated, she was maneuvered into the prone position in anticipation of the ERCP. Once in adequate position, the standard duodenoscope was introduced into the mouth with intubation of the esophagus, stomach, and the proximal small intestines with the findings listed below. The patient tolerated the procedure well with no immediate perioperative complications. On conclusion of the procedure, all equipment was removed from the patient and she was transferred to PACU in satisfactory condition. FINDINGS: EGD findings: Limited views were obtained during the EGD portion of this exam of the esophagus, stomach, and the proximal small intestines. However, of the views obtained using the side-viewing nature of the duodenoscope, normal-appearing mucosa was seen in the proximal, mid, and distal esophagus. Normal-appearing mucosa was also seen at the gastric cardia, GE junction, fundus, incisura, and antrum. Also normal-appearing mucosa was seen in the duodenal bulb and second portion of the duodenum. There was no evidence of erosions, ulcerations, mass lesions, or active/recent bleeding. ERCP findings: The ampulla of Vater was successfully identified within the second portion of the duodenum. Then, using a 5-mm Ultratome sphincterotome, the ampulla was successfully cannulated, but with a moderate amount of difficulty. During the course of the procedure, a guidewire was placed within the pancreatic duct in order to facilitate placing a guidewire within the extrahepatic biliary tree. Once the extrahepatic biliary tree was successfully cannulated, a cholangiogram was then performed for adequate visualization of the common bile duct as well as the intrahepatic biliary tree. On initial cholangiogram, there was a stricture noted midway through the common bile duct, measuring approximately 1.5 to 2 cm in length. Adequate filling was seen of the intrahepatic and common bile ducts with the common bile duct measuring approximately 1.2 cm proximal to the stricture and 7 to 8 mm distal to the stricture. The guidewire that was then placed within the intrahepatic biliary tree where the sphincterotome was then swapped out for a 9- to 12-mm biliary balloon successfully using exchange technique. Once the balloon was in adequate position, balloon sweeps were then performed for possible choledocholithiasis or removal of the offending obstructive stone. However, with multiple sweeps, no stone or stone debris was obtained. The balloon was then exchanged for a biliary brush, which was then again advanced over the guidewire. The biliary brush was then employed within the common bile duct at the level of the biliary stricture with multiple passes achieved. It was then withdrawn and the tip was placed in a specimen jar for evaluation of cytology. A biliary stent was then placed within the common bile duct, so a 7 cm 10-[place] biliary stent was successfully placed across the high-grade biliary stricture with a large amount of black-colored bile seen draining from the stent afterwards. Upon fluoroscopy imaging after the stent placement, good drainage of the proximal biliary system was achieved, at which point all equipment was removed from the patient and then she was transferred to PACU. IMPRESSION: A high-grade biliary stricture within the common bile duct, measuring 1.5 cm to 2 cm in length, now status post biliary brushings and successful placement of a 7 cm 10-[place] biliary stent. RECOMMENDATIONS: 1. We will continue to trend the patient's LFTs for adequate drainage of the biliary system and resolution of the obstruction. 2. Continue to monitor clinically for resolution of her abdominal pain and for evaluation of possible post-ERCP pancreatitis. 3. Would continue antibiotics for the next 24 hours given instrumentation today. 4. Would follow up on the cytology from the biliary brushings for evaluation of possible malignancy (high degree of suspicion for cholangiocarcinoma). 5. Pain control per primary team. 6. Could start the patient on a clear liquid diet and advance as tolerated. We will continue to follow. Please call with any questions. Job ID: [id number]
[2019-11-19] MEDS: Lactated Ringer's 1,000 ML IV SCH (19:45)
[2019-11-19] MEDS ORDERED: Lactated Ringer's 1,000 ML IV SCH (19:45)
[2019-11-19] MEDS ORDERED: Morphine 4 MG/ML VIAL SLOW IVP SCH (20:00)
[2019-11-19] MEDS: Potassium Chloride 20 MEQ TAB PO SCH (21:54)
--- NOTE | 2019-11-19 22:20 | PRG ---
DATE OF SERVICE: 11/19/2019 SUBJECTIVE: I was notified by nursing this evening that the patient has been having epigastric pain after the ERCP. The patient reports that the pain is fairly severe, aching pain in the epigastric region, it is different than the pain she came in with. She vomited some bilious material once. She has been making good urine output. OBJECTIVE: VITAL SIGNS: Temperature 99.6, pulse 61, blood pressure 182/81. GENERAL: She is in no acute distress. Alert and oriented x3. LUNGS: Clear to auscultation bilaterally. HEART: Regular rate and rhythm without murmur. ABDOMEN: Soft. Mild tenderness in the epigastric region without guarding. She is nondistended. Bowel sounds are present. EXTREMITIES: No lower extremity edema. IMPRESSION: Epigastric pain and nausea and vomiting. She most likely has mild post endoscopic retrograde cholangiopancreatography pancreatitis. We will treat her as such. RECOMMENDATIONS: 1. I will order for a lactose Ringer's bolus and then to follow with 150 mL/h. Her lungs are clear. She is breathing comfortably. Her abdomen is nondistended and has mild tenderness. 2. N.p.o. for now. If her pain is better tomorrow, she can go back on clear liquid diet. 3. Check lipase in the morning. 4. Pain control per the primary service. She is receiving morphine. 5. Incentive spirometry. 6. She is on antibiotic Zosyn. Job ID: [id number]
[2019-11-20] MEDS ORDERED: Promethazine HCl 25 MG in Sodium Chloride 0.9% 50 ML IVPB PRN (00:23)
[2019-11-20] MEDS: Morphine 4 MG/ML VIAL SLOW IVP PRN ×2 (00:29→14:04)
[2019-11-20] MEDS: Piperacillin/Tazobactam 3.375 GM in Sodium Chloride 0.9% 100 ML IVPB SCH ×4 (00:56→18:21)
[2019-11-20] MEDS: Potassium Chloride 20 MEQ TAB PO SCH (02:45)
[2019-11-20] MEDS: Lactated Ringer's 1,000 ML IV SCH ×6 (02:50→21:20)
[2019-11-20 06:19] LABS: ALT (SGPT) 299 U/L (8-55); AST (SGOT) 123 U/L (5-34); Albumin 2.8 g/dL (3.4-4.8); Alkaline Phosphatase 861 U/L (40-110); Anion Gap 10 mmol/L (10-20); BUN (Urea Nitrogen) 6 mg/dL (9.8-20.1); Bilirubin, Total 7.4 mg/dL (0.2-1.2); Calc. Creatinine Clearance 102 mL/min (70-130); Calcium 8.4 mg/dL (7.8-10.44); Carbon Dioxide 27 mmol/L (23-31); Chloride 101 mmol/L (98-107); Estimated GFR-MDRD Greater than 90; Globulin 2.9 g/dL (2.4-3.5); Glucose 83 mg/dL (80-115); Potassium 3.5 mmol/L (3.5-5.1); Protein, Total 5.7 g/dL (6.0-8.3); Sodium 134 mmol/L (136-145)
[2019-11-20 06:25] LABS: #Basophils 0.1 thou/uL (0.0-0.2); #Eosinphils 0.1 thou/uL (0.0-0.7); #Lymphocytes 5.7 thou/uL (1.20-3.40); #Monocytes 0.4 thou/uL (0.11-0.59); #Neutrophils 5.2 thou/uL (1.40-6.50); %Basophils 1.1 % (0.0-1.0); %Eosinophils 0.9 % (0.0-10.0); %Lymphocytes 49.4 % (21.0-51.0); %Monocytes 3.6 % (0.0-10.0); %Neutrophils 44.9 % (42.0-75.0); Hemoglobin 10.6 g/dL (12.0-16.0); Mean Corpuscular HGB CONC 32.6 g/dL (32.0-36.0); Mean Corpuscular Hemoglobin 34.5 pg (27.0-31.0); Platelet Count 395 thou/uL (130-400); RBC Distribution Width 13.7 % (11.5-14.5); Red Blood Cell (RBC) Count 3.07 mill/uL (4.20-5.40); White Blood Cell (WBC) Count 11.6 thou/uL (4.8-10.8)
[2019-11-20 06:32] LABS: Lipase 2121 U/L (8-78)
[2019-11-20] MEDS: Mometasone 200 MCG/Formoterol 5 MCG 120 PUFF INHALER INH SCH ×2 (06:56→18:41)
[2019-11-20] MEDS: Famotidine 20 MG TAB PO SCH ×2 (09:27→21:12)
[2019-11-20] MEDS: hydrALAZINE 25 MG TAB PO SCH ×2 (09:27→21:12)
[2019-11-20] MEDS: cloNIDine 0.1 MG TAB PO SCH ×2 (09:27→21:14)
--- NOTE | 2019-11-20 12:35 | PDOC.HOSPP ---
- Subjective Encounter Date: 11/20/19 Encounter Time: 07:45 Subjective: no abd pain or nausea this morning feels better no wheezing or sob - Objective Vital Signs & Weight: Vital Signs (12 hours) Temp Pulse Resp BP BP Pulse Ox 11/20/19 11:30 99.7 F H 72 16 137/84 97 11/20/19 09:25 97 11/20/19 07:40 99.2 F 73 16 143/85 H 96 11/20/19 06:57 64 18 99 11/20/19 04:00 98.0 F 84 20 134/80 98 11/20/19 02:53 166/90 H 11/20/19 02:48 180/80 H Weight Weight 141 lb 1 oz I&O: 11/19/19 11/20/19 11/21/19 06:59 06:59 06:59 Intake Total 1100 3250 Balance 1100 3250 Result Diagrams: 11/20/19 05:33 11/20/19 05:33 Hospitalist ROS - Medication Medications: Active Medications Generic Name Dose Route Start Last Admin Trade Name Freq PRN Reason Stop Dose Admin Albuterol/Ipratropium 3 ml 11/18/19 19:00 11/20/19 06:57 Duoneb NEB 3 ml [id number] JANENE Administration Clonidine 0.1 mg 11/18/19 21:00 11/20/19 09:27 Catapres PO 0.1 mg BID JANENE Administration Famotidine 20 mg 11/18/19 21:00 11/20/19 09:27 Pepcid PO 20 mg BID JANENE Administration Guaifenesin/Dextromethorphan 15 ml 11/18/19 15:54 11/18/19 20:51 Robitussin Dm PO 15 ml Q4H PRN Administration Cough Hydralazine HCl 25 mg 11/18/19 21:00 11/20/19 09:27 Apresoline PO 25 mg BID JANENE Administration Piperacillin Sod/Tazobactam 100 mls @ 200 mls/hr 11/18/19 18:00 11/20/19 05: 50 Sod 3.375 gm/ Sodium Chloride IVPB 100 mls Q6HR JANENE Administration Lactated Ringer's 1,000 mls @ 150 mls/hr 11/19/19 19:45 11/20/19 09:37 Lactated Ringer's IV Not Given .Q6H40M JANENE Promethazine HCl 25 mg/ Sodium 51 mls @ 204 mls/hr 11/20/19 00:23 11/20/19 00 :42 Chloride IVPB 51 mls Q6H PRN Administration Nausea Mometasone Furoate/Formoterol Fumar 2 puff 11/18/19 18:30 11/20/19 06:56 Dulera 200 Mcg/5 Mcg Inhaler INH 2 puff BID-RT JANENE Administration Morphine Sulfate 2 mg 11/18/19 18:25 11/20/19 00:29 Morphine SLOW IVP 2 mg Q4H PRN Administration Mild Pain (1-3) Ondansetron HCl 4 mg 11/18/19 15:54 11/19/19 20:09 Zofran IVP 4 mg Q6H PRN Administration Nausea/Vomiting Sodium Chloride 10 ml 11/19/19 09:00 11/20/19 09:27 Flush - Normal Saline IVF 10 ml Q12HR JANENE Administration - Exam General Appearance: awake alert Eye: scleral icterus ENT: no oropharyngeal lesions Neck: supple, no JVD Heart: RRR, no gallops Respiratory: no wheezes, no rales, rhonchi Gastrointestinal: soft, non-distended, normal bowel sounds, no guarding, no rigidity Extremities: no cyanosis, no edema Neurological: cranial nerve grossly intact, no focal deficits Psychiatric: normal affect, A&O x 3 Hosp A/P (1) Jaundice Code(s): R17 - UNSPECIFIED JAUNDICE Status: Acute (2) COPD (chronic obstructive pulmonary disease) Status: Chronic Qualifiers: COPD type: chronic bronchitis (3) HTN (hypertension) Code(s): I10 - ESSENTIAL (PRIMARY) HYPERTENSION Status: Chronic Qualifiers: Hypertension type: essential hypertension Qualified Code(s): I10 - Essential (primary) hypertension (4) Hepatitis C Code(s): B19.20 - UNSPECIFIED VIRAL HEPATITIS C WITHOUT HEPATIC COMA Status: Chronic Qualifiers: Viral hepatitis chronicity: chronic Hepatic coma status: without hepatic coma Qualified Code(s): B18.2 - Chronic viral hepatitis C (5) Substance abuse Code(s): F19.10 - OTHER PSYCHOACTIVE SUBSTANCE ABUSE, UNCOMPLICATED Status: Acute (6) Tobacco abuse Code(s): Z72.0 - TOBACCO USE Status: Chronic (7) Elevated LFTs Code(s): R79.89 - OTHER SPECIFIED ABNORMAL FINDINGS OF BLOOD CHEMISTRY Status : Acute - Plan had ERCP with stent placed for biliary stricture 11/18, LFT's are trending down, t.bili is down to 7 this am. post ercp abd pain and nausea has resolved, is on iv fluids, is npo, may advance to liq diet if ok with GI counselled pt to ambulate in hallway continue empiric zosyn, dulera inh, duonebs, clonidine and hydralazine hemostable blood for hep C quantitative titers and genotype was taken 11/17 MRCP did not reveal any mass. further w/u for biliary stricture per GI advice, await cytology results from biliary brushings taken with ercp
[2019-11-20] MEDS ORDERED: Morphine 4 MG/ML VIAL SLOW IVP PRN (14:37)
[2019-11-21] MEDS: Piperacillin/Tazobactam 3.375 GM in Sodium Chloride 0.9% 100 ML IVPB SCH ×5 (00:37→23:35)
[2019-11-21] MEDS: Lactated Ringer's 1,000 ML IV SCH ×3 (04:39→19:36)
[2019-11-21 06:19] LABS: ALT (SGPT) 197 U/L (8-55); AST (SGOT) 69 U/L (5-34); Albumin 2.7 g/dL (3.4-4.8); Alkaline Phosphatase 614 U/L (40-110); Anion Gap 11 mmol/L (10-20); BUN (Urea Nitrogen) 5 mg/dL (9.8-20.1); Bilirubin, Total 5.4 mg/dL (0.2-1.2); Calc. Creatinine Clearance 109 mL/min (70-130); Calcium 8.4 mg/dL (7.8-10.44); Carbon Dioxide 25 mmol/L (23-31); Chloride 101 mmol/L (98-107); Estimated GFR-MDRD Greater than 90; Globulin 2.7 g/dL (2.4-3.5); Glucose 74 mg/dL (80-115); Lipase 662 U/L (8-78); Potassium 3.1 mmol/L (3.5-5.1); Protein, Total 5.4 g/dL (6.0-8.3); Sodium 134 mmol/L (136-145)
[2019-11-21 06:24] LABS: Band 3 % (5-11); Eosinophils 1 % (0-10); Hemoglobin 9.3 g/dL (12.0-16.0); Hypochromia SLIGHT = 6-15 cells (100X) (0-5/hpf); Lymphocytes 16 % (21-51); MDiff Complete? YES; Macrocytosis SLIGHT = 6-15 cells (100X) (0-5/hpf); Mean Corpuscular HGB CONC 32.2 g/dL (32.0-36.0); Mean Corpuscular Hemoglobin 34.6 pg (27.0-31.0); Mean Platelet Volume 7.7 fL (7.4-10.4); Monocytes 6 % (0-10); Neutrophil 74 % (42-75); Platelet Count 428 thou/uL (130-400); Platelet Morphology Comment Appears Adequate; RBC Distribution Width 13.4 % (11.5-14.5); Red Blood Cell (RBC) Count 2.68 mill/uL (4.20-5.40); White Blood Cell (WBC) Count 15.4 thou/uL (4.8-10.8)
--- NOTE | 2019-11-21 07:03 | PRG ---
DATE OF SERVICE: 11/20/2019 SUBJECTIVE: Ms. Milligan has had no fever overnight. She had some pain medicine around 3 o'clock. Nurse reports she said it did not control her pain, but presently, she states she has no pain and she would like to try to have some liquids. She has been doing ice without problems. She has had no vomiting. She is voiding. Her urine is still dark. MEDICATIONS: Reviewed. She is on LR at 150 an hour. She is on Zosyn, p.r.n. Phenergan, and Pepcid for ulcer prophylaxis. OBJECTIVE: VITAL SIGNS: Temperature is 99.7 to 99.2, pulse is 71, and blood pressure 123/76. LUNGS: Clear. HEART: Regular rate and rhythm. ABDOMEN: Soft, nondistended, and nontender. There is no rebound. There is no guarding. LABORATORY DATA: White count 11, hemoglobin 10.6, MCV is 104, and platelet count 395. INR 0.9. Sodium 134, potassium 3.5, BUN and creatinine are 16 and 0.58. Bilirubin came down from 20 to 7.4, AST to 123, ALT to 299, alkaline phosphatase to 861. Serum protein 5.7, albumin is 2.8, lipase is 2121 was 38 yesterday. Drug screen showed cocaine and cannabinoids on admission. Serology, hep C antibody positive. Imaging, there is no comment of mass in the pancreas. Ultrasound showed mild hepatomegaly, gallbladder sludge, dilated common and intrahepatic bile ducts. MRCP was vague read. RECOMMENDATIONS: 1. We will ask Dr. Smith to review MRCP from yesterday. We will get a CA 19-9, CEA. Brushings showed atypical cells. We will also check for autoimmune pancreatitis bile duct strictures. There is also a possibility with her cocaine use this could be an ischemic stricture. 2. Post ERCP pancreatitis, seems to be improving. We will start a liquid diet. If there is nothing to be gained on review of the MRI, we can always consider getting a CT scan through the pancreas with thin cuts. We will follow along with you. Job ID: [id number]
[2019-11-21] MEDS: Mometasone 200 MCG/Formoterol 5 MCG 120 PUFF INHALER INH SCH ×2 (07:52→18:35)
[2019-11-21] MEDS: Famotidine 20 MG TAB PO SCH ×2 (08:29→21:17)
[2019-11-21] MEDS: hydrALAZINE 25 MG TAB PO SCH ×2 (08:29→21:17)
[2019-11-21] MEDS: cloNIDine 0.1 MG TAB PO SCH ×2 (08:29→21:15)
--- NOTE | 2019-11-21 12:34 | PRG ---
DATE OF SERVICE: 11/21/2019 SUBJECTIVE: The patient has complete resolution of abdominal pain. She has no nausea or vomiting. She wants to eat. PHYSICAL EXAMINATION: VITAL SIGNS: Temperature is 98.5, blood pressure is 116/77, pulse of 67. GENERAL: She is alert, conversant without any distress. HEENT: Mildly icteric sclerae. Oropharynx is moist. CV: Normal S1, S2. Regular rate and rhythm. CHEST: Breath sounds. ABDOMEN: Soft and nontender. She has active bowel sounds. No distention. No tympany. EXTREMITIES: No edema. LABORATORY DATA: WBCs 15.4, hemoglobin 9.3, and platelet count of 428. Sodium 134, potassium 3.1, creatinine 0.54, bilirubin 5.4, ALT 197, alkaline phosphatase 614, CEA 1.12. CA-19-9 pending. ASSESSMENT: 1. Obstructive jaundice with distal biliary stricture noted, status post ERCP with stent placement. Further review of the MRCP revealed a pancreatic mass in the head of the pancreas. This is likely the source of her biliary obstruction. Primary pancreatic neoplasm is suspected, but not confirmed. Cytology was nondiagnostic. 2. Obstructive jaundice, resolving with biliary stent placement. LFT is trending down. 3. Post ERCP pancreatitis, clinically resolved. RECOMMENDATIONS: 1. Advance diet. 2. If the patient does well, can be discharged to home on Cipro 500 mg b.i.d. x7 days for biliary stent protection. 3. We will arrange outpatient endoscopic ultrasound to further define pancreatic lesion. Job ID: [id number] MTDD
--- NOTE | 2019-11-21 13:01 | PDOC.HOSPP ---
- Subjective Encounter Date: 11/21/19 Encounter Time: 08:00 Subjective: no abd pain, nausea or vomiting is tolerating oral liq diet says she is ambulating - Objective Vital Signs & Weight: Vital Signs (12 hours) Temp Pulse Resp BP BP Pulse Ox 11/21/19 11:18 98.5 F 67 16 116/77 96 11/21/19 08:29 78 125/79 11/21/19 07:53 78 16 98 11/21/19 07:17 98.6 F 70 16 125/79 98 11/21/19 04:00 98.3 F 75 20 139/65 98 Weight Weight 141 lb 1 oz I&O: 11/20/19 11/21/19 11/22/19 06:59 06:59 06:59 Intake Total 3250 3875 Output Total 2400 400 Balance 3250 1475 -400 Result Diagrams: 11/21/19 05:35 11/21/19 05:35 Hospitalist ROS - Medication Medications: Active Medications Generic Name Dose Route Start Last Admin Trade Name Efrain PRN Reason Stop Dose Admin Albuterol/Ipratropium 3 ml 11/18/19 19:00 11/21/19 07:53 Duoneb NEB 3 ml [id number] JANENE Administration Clonidine 0.1 mg 11/18/19 21:00 11/21/19 08:29 Catapres PO 0.1 mg BID JANENE Administration Famotidine 20 mg 11/18/19 21:00 11/21/19 08:29 Pepcid PO 20 mg BID JANENE Administration Guaifenesin/Dextromethorphan 15 ml 11/18/19 15:54 11/18/19 20:51 Robitussin Dm PO 15 ml Q4H PRN Administration Cough Hydralazine HCl 25 mg 11/18/19 21:00 11/21/19 08:29 Apresoline PO 25 mg BID JANENE Administration Piperacillin Sod/Tazobactam 100 mls @ 200 mls/hr 11/18/19 18:00 11/21/19 12: 45 Sod 3.375 gm/ Sodium Chloride IVPB 100 mls Q6HR JANENE Administration Lactated Ringer's 1,000 mls @ 150 mls/hr 11/19/19 19:45 11/21/19 04:39 Lactated Ringer's IV 1,000 mls .Q6H40M JANENE Administration Promethazine HCl 25 mg/ Sodium 51 mls @ 204 mls/hr 11/20/19 00:23 11/20/19 00 :42 Chloride IVPB 51 mls Q6H PRN Administration Nausea Mometasone Furoate/Formoterol Fumar 2 puff 11/18/19 18:30 11/21/19 07:52 Dulera 200 Mcg/5 Mcg Inhaler INH 2 puff BID-RT JANENE Administration Ondansetron HCl 4 mg 11/18/19 15:54 11/19/19 20:09 Zofran IVP 4 mg Q6H PRN Administration Nausea/Vomiting Sodium Chloride 10 ml 11/19/19 09:00 11/21/19 08:30 Flush - Normal Saline IVF 10 ml Q12HR JANENE Administration - Exam General Appearance: awake alert Eye: PERRL, anicteric sclera ENT: no oropharyngeal lesions, moist mucosa Neck: supple, no JVD Heart: RRR, no murmur Respiratory: no wheezes, no rales Gastrointestinal: soft, non-tender, non-distended, normal bowel sounds Extremities: no cyanosis, no edema Neurological: cranial nerve grossly intact, no focal deficits Psychiatric: normal affect, A&O x 3 Hosp A/P (1) Jaundice Code(s): R17 - UNSPECIFIED JAUNDICE Status: Acute (2) COPD (chronic obstructive pulmonary disease) Status: Chronic Qualifiers: COPD type: chronic bronchitis (3) HTN (hypertension) Code(s): I10 - ESSENTIAL (PRIMARY) HYPERTENSION Status: Chronic Qualifiers: Hypertension type: essential hypertension Qualified Code(s): I10 - Essential (primary) hypertension (4) Hepatitis C Code(s): B19.20 - UNSPECIFIED VIRAL HEPATITIS C WITHOUT HEPATIC COMA Status: Chronic Qualifiers: Viral hepatitis chronicity: chronic Hepatic coma status: without hepatic coma Qualified Code(s): B18.2 - Chronic viral hepatitis C (5) Substance abuse Code(s): F19.10 - OTHER PSYCHOACTIVE SUBSTANCE ABUSE, UNCOMPLICATED Status: Acute (6) Tobacco abuse Code(s): Z72.0 - TOBACCO USE Status: Chronic (7) Elevated LFTs Code(s): R79.89 - OTHER SPECIFIED ABNORMAL FINDINGS OF BLOOD CHEMISTRY Status : Acute - Plan had ERCP with stent placed for biliary stricture 8/24, LFT's are trending down, t.bili is down to 5 this am. post ercp abd pain and nausea has resolved, is on iv fluids, on oral diet to ambulate in hallway continue empiric zosyn, dulera inh, duonebs, clonidine and hydralazine hemostable blood for hep C quantitative titers and genotype was taken 11/17 MRCP shows suspected pancreatic head mass, for outpt EUS. DC plan later today or in am, oral cipro x 7 days on discharge
[2019-11-21 14:14] LABS: Hep C PCR-Quant HCV Not Detected IU/mL (.)
[2019-11-21 15:33] LABS: ANA Symphony (Qualitative) POSITIVE (Negative); ANA Symphony (Quantitative) 2.6 Ratio (< 0.7 Negative); EliA Vaculitis New Method **** NEW METHOD ****; Jo-1 IgG Antibody Less than 0.3 EliAU/mL (<7 Negative); Mitochondrial Ab 0.9 U/mL (<4 Negative); RNP70 IgG Antibody Less than 0.3 EliAU/mL (<7 Negative); SSA/Ro IgG Antibody Less than 0.3 EliAU/mL (<7 Negative); SSB/La IgG Antibody 0.3 EliAU/mL (<7 Negative); Scleroderma-70 IgG Antibody Less than 0.6 EliAU/mL (<7 Negative); Smith D IgG Antibody 0.9 EliAU/mL (<7 Negative); dsDNA IgG Antibody Less than 0.5 IU/mL (<10 Negative)
[2019-11-22] MEDS: Lactated Ringer's 1,000 ML IV SCH ×2 (01:01→08:55)
[2019-11-22 06:10] LABS: ALT (SGPT) 155 U/L (8-55); AST (SGOT) 55 U/L (5-34); Albumin 2.7 g/dL (3.4-4.8); Alkaline Phosphatase 528 U/L (40-110); Anion Gap 9 mmol/L (10-20); BUN (Urea Nitrogen) 6 mg/dL (9.8-20.1); Bilirubin, Total 4.1 mg/dL (0.2-1.2); Calc. Creatinine Clearance 100 mL/min (70-130); Calcium 8.3 mg/dL (7.8-10.44); Carbon Dioxide 28 mmol/L (23-31); Chloride 105 mmol/L (98-107); Estimated GFR-MDRD Greater than 90; Globulin 2.7 g/dL (2.4-3.5); Glucose 91 mg/dL (80-115); Lipase 325 U/L (8-78); Potassium 3.4 mmol/L (3.5-5.1); Protein, Total 5.4 g/dL (6.0-8.3); Sodium 139 mmol/L (136-145)
[2019-11-22] MEDS: Piperacillin/Tazobactam 3.375 GM in Sodium Chloride 0.9% 100 ML IVPB SCH (06:19)
[2019-11-22] MEDS: Mometasone 200 MCG/Formoterol 5 MCG 120 PUFF INHALER INH SCH (06:57)
[2019-11-22] MEDS: cloNIDine 0.1 MG TAB PO SCH (08:26)
[2019-11-22] MEDS: hydrALAZINE 25 MG TAB PO SCH (08:26)
[2019-11-22] MEDS: Famotidine 20 MG TAB PO SCH (08:26)
[2019-11-22 11:23] VITALS: BP 144/84; TEMP 98.3
--- NOTE | 2019-11-22 11:55 | PRG ---
DATE OF SERVICE: 11/22/2019 SUBJECTIVE: Ms. Milligan has no abdominal pain today. No nausea or vomiting. OBJECTIVE: VITAL SIGNS: Temperature is 98.3, pulse 78, blood pressure 144/84. GENERAL: She is in no acute distress. Alert and oriented x3. ABDOMEN: Soft, nontender, and nondistended. Bowel sounds are present. IMPRESSION: 1. 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 Her bilirubin has dropped from 21 to 4. This plastic stent will need to be exchanged in the next couple of months. 2. Pancreatic head mass. Re-read of the MRI does suggest a mass in the head of the pancreas associated with this biliary stricture. Brushings from the bile duct only showed a few atypical cells and is nondiagnostic. Next step will be endoscopic ultrasound to confirm diagnosis and if this is confirmed to be a malignancy and the surrounding structures are not involved, then resection will be her option for cure. 3. Mild post ERCP pancreatitis, improving. RECOMMENDATIONS: 1. She will discharge home today. 2. We will refer her for outpatient endoscopic ultrasound likely in [place] and then potentially referral on to Surgery or Oncology from there. 3. She will complete a course of ciprofloxacin. 4. Follow up in GI clinic. 5. She was noted to have hepatitis C antibody positive and her RNA and genotype are pending. 6. On presentation, her urine cannabinoids and cocaine were positive and cessation is recommended. Job ID: [id number]
--- NOTE | 2019-11-22 14:26 | DIS ---
DATE OF ADMISSION: 11/18/2019 DATE OF DISCHARGE: 11/22/2019 PRIMARY DISCHARGE DIAGNOSES: Possible head of pancreas mass with biliary stricture status post endoscopic retrograde cholangiopancreatography for obstructive jaundice, post endoscopic retrograde cholangiopancreatography mild pancreatitis, resolved; chronic obstructive pulmonary disease with ongoing smoking; hypertension; substance abuse; chronic hep C, which has been untreated and elevated liver function tests due to obstructive jaundice. PROCEDURES DONE DURING HOSPITALIZATION: The patient has had an MRCP done on 11/18/2019, which showed intrahepatic biliary ductal dilatation, indeterminate 1 cm right liver lobe lesion, mild gallbladder wall thickening, left adrenal adenoma. She has had ERCP done on 11/19/[address] Mil Marin. She has had sphincterotomy with stent placement and biliary brushings were obtained. Bile duct brushings revealed rare atypical cells. Discharge H and H of 9 and 28, platelet count 428, MCV is 107, white count of 15 on , BUN 6, creatinine 0.5. Total bilirubin 4.1. Admitting total bilirubin was 21.8. AST on discharge is 55, ALT 155, alkaline phosphatase is 528 on the day of discharge. Admitting AST 573, ALT 561, alkaline phosphatase 1234. All the last three readings were on admission. Albumin is 3.4. Urine tox screen was positive for cocaine metabolites and marijuana. JANEL screen was positive. She also has anticentromere IgG antibody at 32, which is high. Antimitochondrial antibody was 0.9. Hepatitis B surface antigen nonreactive. Hepatitis B core IgM antibody nonreactive. Hepatitis A IgM antibody nonreactive. Hepatitis C genotype and quantitative RNA are pending. COVID-19 PCR done on 11/19/2019, is not detected. DISCHARGE MEDICATIONS: 1. Symbicort inhaler 160/4.5 mcg 2 puffs twice daily. 2. Hydralazine 25 mg twice daily. 3. Clonidine 0.1 mg p.o. twice daily. 4. Albuterol inhaler q.6 hourly p.r.n. 5. Isosorbide dinitrate 20 mg daily. 6. Levaquin 500 mg p.o. daily for another 6 days. ALLERGIES: TO ASPIRIN. INPATIENT CONSULT: Dr. Mil Marin for Gastroenterology. DISCHARGE PLAN: The patient to follow up with Dr. Marin in 2 weeks. She needs to follow up with her primary care physician in 1 week. BRIEF COURSE DURING HOSPITALIZATION: The patient initially got admitted on the with complaints of jaundice with discoloration high colored urine. The patient also had abdominal pain. In the epigastric area, multiple workups were done in the ER. Her initial total bilirubin was 21. Ultrasound of the right upper quadrant done did not reveal any acute gallbladder pathology or stones. The common bile duct was around 9 mm and in view of this, an MRCP was obtained. This initial reading on the MRCP did not reveal any mass, but had dilated biliary ducts. The patient was taken for ERCP with sphincterotomy and stent placement by Dr. Mil Marin. There was a stricture noted midway through the common bile duct measuring approximately 1.5 to 2 cm in length. There were no stones or stone debris were noted. Biliary stent was then placed within the common bile duct across the high-grade biliary stricture with a large amount of black colored bile seen draining from the stent afterwards. Post this procedure, the patient developed mild procedure-related pancreatitis with abdominal pain. This completely resolved. She was kept n.p.o. postprocedure and was aggressively fluid hydrated. At the time of discharge, the patient is tolerating oral low-fat diet. She is ambulating in the hallway. She was counseled with regard to complete smoking cessation and to stop using cocaine. She is advised to follow up with Dr. Mil Marin in 2 weeks for possible outpatient endoscopic ultrasound for likely pancreatic head mass, which is being suspected at present. Her bile duct brushings have not revealed any outright malignancy, but there were atypical cells seen. She has been cleared for discharge by Gastroenterology. Job ID: [id number]
--- NOTE | 2019-11-24 15:12 | EKG ---
Test Reason : Blood Pressure : / mmHG Vent. Rate : 075 BPM Atrial Rate : 075 BPM P-R Int : 176 ms QRS Dur : 084 ms QT Int : 412 ms P-R-T Axes : 063 -11 074 degrees QTc Int : 460 ms Normal sinus rhythm Low voltage QRS Septal infarct , age undetermined Abnormal ECG Confirmed by RUSTY MOLINA DO ([id number]), image editor INGRID FOFANA ([id number]) on 11/24/2019 3:12:10 PM Referred By: Confirmed By:RUSTY MOLINA DO
== END 2019-11-22 11:15 | disposition home or self-care (01) | DRG 444 ==
LOC: ERS 11:17 → T4-B 16:47
PROVIDERS: ADMIT Internal Medicine; ATTEND Internal Medicine
PROC: 0F798DZ Dilation of Common Bile Duct with Intraluminal Device, Via Natural or Artificial Opening Endoscopic (ICD-10-PCS; principal; 2019-11-19)
PROC: 0FD98ZX Extraction of Common Bile Duct, Via Natural or Artificial Opening Endoscopic, Diagnostic (ICD-10-PCS; 2019-11-19)
PROC: BF111ZZ Fluoroscopy of Biliary and Pancreatic Ducts using Low Osmolar Contrast (ICD-10-PCS; 2019-11-19)
DX: K83.1 Obstruction of bile duct (principal); K85.90 Acute pancreatitis without necrosis or infection, unspecified; K91.89 Other postprocedural complications and disorders of digestive system; K86.89 Other specified diseases of pancreas; Z20.828 Contact with and (suspected) exposure to other viral communicable diseases; J44.9 Chronic obstructive pulmonary disease, unspecified; I10 Essential (primary) hypertension; E78.5 Hyperlipidemia, unspecified; F31.9 Bipolar disorder, unspecified; F19.10 Other psychoactive substance abuse, uncomplicated; B18.2 Chronic viral hepatitis C; F17.210 Nicotine dependence, cigarettes, uncomplicated; Z79.51 Long term (current) use of inhaled steroids; Z88.8 Allergy status to other drugs, medicaments and biological substances; Y83.8 Other surgical procedures as the cause of abnormal reaction of the patient, or of later complication, without mention of misadventure at the time of the procedure
CPT/HCPCS: 36415; 71045; 74181; 74330; 76705; 80053; 80074; 80306; 80307; 81003; 81015; 82140; 82378; 82550; 82787; 83516; 83690; 84484; 85025; 85610; 85730; 86038; 86225; 86235; 86301; 87522; 87635; 87902; 88104; 88112; 93005; 94640; 94664; 96360; C1769; J2270; J2405; J2543; J2550; J2704; J3010; J3480; J3490; J7050; J7620; U0002; U0003

== ENCOUNTER 2020-06-01 10:31 | Inpatient (IN) | payer MEDICARE ==
[2020-06-01] MEDS ORDERED: Ondansetron PF 4 MG/2 ML Vial ONE ×2 (11:18→14:01)
[2020-06-01] MEDS ORDERED: Morphine 4 MG/ML VIAL ONE ×2 (11:18→14:01)
[2020-06-01 11:34] LABS: INR-International Normal Ratio 0.9; PTT 30.8 sec (22.9-36.1); Prothrombin Time 12.7 sec (12.0-14.7)
[2020-06-01 11:42] LABS: #Basophils 0.1 thou/uL (0.0-0.2); #Lymphocytes 1.6 thou/uL (1.20-3.40); #Monocytes 0.4 thou/uL (0.11-0.59); #Neutrophils 4.3 thou/uL (1.40-6.50); %Basophils 0.8 % (0.0-1.0); %Eosinophils 0.6 % (0.0-10.0); %Lymphocytes 24.8 % (21.0-51.0); %Monocytes 6.8 % (0.0-10.0); Hemoglobin 15.8 g/dL (12.0-16.0); MDiff Complete? YES; Macrocytosis SLIGHT = 6-15 cells (100X) (0-5/hpf); Mean Corpuscular HGB CONC 34.2 g/dL (32.0-36.0); Mean Platelet Volume 6.6 fL (7.4-10.4); Platelet Count 429 thou/uL (130-400); Platelet Morphology Comment Appears Increased; Polychromasia SLIGHT = 2-3 cells (100X) (0-2/hpf); RBC Distribution Width 12.2 % (11.5-14.5); Red Blood Cell (RBC) Count 4.39 mill/uL (4.20-5.40); White Blood Cell (WBC) Count 6.4 thou/uL (4.8-10.8)
[2020-06-01 11:53] LABS: ALT (SGPT) 11 U/L (8-55); AST (SGOT) 13 U/L (5-34); Alkaline Phosphatase 96 U/L (40-110); Anion Gap 15 mmol/L (10-20); BUN (Urea Nitrogen) 8 mg/dL (9.8-20.1); Bilirubin, Total 0.5 mg/dL (0.2-1.2); CK (CPK) 43 U/L (29-168); Calc. Creatinine Clearance 0 mL/min (70-130); Calcium 9.5 mg/dL (7.8-10.44); Carbon Dioxide 26 mmol/L (23-31); Chloride 102 mmol/L (98-107); Globulin 3.1 g/dL (2.4-3.5); Glucose 105 mg/dL (80-115); Lipase 16 U/L (8-78); Potassium 4.6 mmol/L (3.5-5.1); Protein, Total 7.1 g/dL (5.8-8.1); Sodium 138 mmol/L (136-145)
[2020-06-01] MEDS ORDERED: Iopamidol-370 76% 500 ML 1 ML ONE (12:12)
[2020-06-01] MEDS ORDERED: Senokot S 8.6-50 MG TAB PO PRN (15:45)
[2020-06-01] MEDS ORDERED: Ondansetron PF 4 MG/2 ML Vial IVP PRN (15:45)
[2020-06-01] MEDS ORDERED: Fentanyl 100 MCG/2 ML VIAL SLOW IVP PRN (15:51)
[2020-06-01] MEDS: Sodium Chloride 0.9% 1,000 ML IV SCH (16:29)
[2020-06-01] MEDS: Nicotine 14 MG PATCH TD SCH (16:38)
[2020-06-01] MEDS ORDERED: Mometasone 200 MCG/Formoterol 5 MCG 120 PUFF INHALER INH PRN (16:41)
[2020-06-01] MEDS ORDERED: Melatonin 3 MG TAB PO PRN (16:51)
[2020-06-01 17:11] VITALS: BMI 23.4
[2020-06-01] MEDS: Fentanyl 100 MCG/2 ML VIAL SLOW IVP PRN (19:43)
[2020-06-01] MEDS: Venlafaxine HCl 25 MG TAB PO SCH (21:32)
[2020-06-01] MEDS: Pantoprazole 40 MG VIAL IVP SCH (21:32)
[2020-06-01] MEDS: Isosorbide Dinitrate 20 MG TAB PO SCH (21:33)
[2020-06-01 21:49] LABS: SARS-CoV-2 PCR by NAA Not Detected (NotDetected)
[2020-06-02] MEDS: Sodium Chloride 0.9% 1,000 ML IV SCH ×3 (04:08→14:29)
[2020-06-02 06:25] LABS: #Lymphocytes 0.7 thou/uL (1.20-3.40); #Monocytes 0.4 thou/uL (0.11-0.59); #Neutrophils 4.2 thou/uL (1.40-6.50); %Basophils 0.7 % (0.0-1.0); %Eosinophils 0.7 % (0.0-10.0); %Lymphocytes 13.5 % (21.0-51.0); %Monocytes 7.4 % (0.0-10.0); %Neutrophils 77.7 % (42.0-75.0); Hemoglobin 13.8 g/dL (12.0-16.0); Mean Corpuscular Hemoglobin 36.4 pg (27.0-31.0); Mean Platelet Volume 6.7 fL (7.4-10.4); Platelet Count 370 thou/uL (130-400); RBC Distribution Width 12.3 % (11.5-14.5); White Blood Cell (WBC) Count 5.4 thou/uL (4.8-10.8)
[2020-06-02 06:40] LABS: ALT (SGPT) 9 U/L (8-55); AST (SGOT) 10 U/L (5-34); Albumin 2.8 g/dL (3.4-4.8); Alkaline Phosphatase 70 U/L (40-110); Anion Gap 11 mmol/L (10-20); BUN (Urea Nitrogen) 7 mg/dL (9.8-20.1); Bilirubin, Total 0.5 mg/dL (0.2-1.2); Calc. Creatinine Clearance 87 mL/min (70-130); Calcium 7.9 mg/dL (7.8-10.44); Carbon Dioxide 21 mmol/L (23-31); Chloride 109 mmol/L (98-107); Globulin 2.8 g/dL (2.4-3.5); Glucose 85 mg/dL (80-115); Potassium 3.3 mmol/L (3.5-5.1); Protein, Total 5.6 g/dL (5.8-8.1); Sodium 138 mmol/L (136-145)
[2020-06-02] MEDS: Fentanyl 100 MCG/2 ML VIAL SLOW IVP PRN ×3 (08:16→20:20)
[2020-06-02] MEDS: Isosorbide Dinitrate 20 MG TAB PO SCH ×2 (08:17→19:49)
[2020-06-02] MEDS: Venlafaxine HCl 25 MG TAB PO SCH ×2 (08:17→19:49)
[2020-06-02] MEDS: Pantoprazole 40 MG VIAL IVP SCH (08:18)
[2020-06-02] MEDS ORDERED: Enoxaparin Sodium 40 MG/0.4 ML SYRINGE SC SCH (09:00)
[2020-06-02] MEDS ORDERED: Isosorbide Dinitrate 20 MG TAB PO SCH (09:00)
[2020-06-02] MEDS ORDERED: Magnevist 469MG/ML 20 ML VIAL ONE (11:19)
[2020-06-02 11:41] VITALS: TEMP 98.2
[2020-06-02 16:09] VITALS: BP 124/76
[2020-06-02] MEDS: Nicotine 14 MG PATCH TD SCH (16:35)
== END 2020-06-02 21:22 | disposition short-term general hospital (02) | DRG 439 ==
LOC: ERS 10:31 → T4-B 14:06
PROVIDERS: ADMIT Internal Medicine; ATTEND Internal Medicine
DX: K85.90 Acute pancreatitis without necrosis or infection, unspecified (principal); E44.0 Moderate protein-calorie malnutrition; F31.9 Bipolar disorder, unspecified; J44.9 Chronic obstructive pulmonary disease, unspecified; F17.210 Nicotine dependence, cigarettes, uncomplicated; E78.5 Hyperlipidemia, unspecified; I10 Essential (primary) hypertension; Z20.822 Contact with and (suspected) exposure to COVID-19; Z88.6 Allergy status to analgesic agent; Z79.899 Other long term (current) drug therapy; Z98.51 Tubal ligation status; Z86.19 Personal history of other infectious and parasitic diseases; Z68.23 Body mass index [BMI] 23.0-23.9, adult
CPT/HCPCS: 36415; 71045; 74177; 74183; 80053; 82550; 83690; 83880; 84484; 85025; 85610; 85730; 87635; 93005; 96374; 96375; 96376; A9579; C9113; J2270; J2405; J3010; Q9967; U0003; U0005

== ENCOUNTER 2021-03-04 09:05 | Emergency (ER) | payer MEDICARE, MEDICAID | END 2021-03-04 09:49 | disposition home or self-care (01) | LOC: ERS 09:05 | DX: R10.13 Epigastric pain (principal) | CPT/HCPCS: 99283 ==

== ENCOUNTER 2021-03-11 10:16 | Outpatient (CLI) | payer MEDICARE, MEDICAID | END 2021-03-11 10:17 | disposition home or self-care (01) | LOC: BICMAMMO 10:16 | PROVIDERS: ATTEND Nurse Practitioner Family | DX: Z12.31 Encounter for screening mammogram for malignant neoplasm of breast (principal); Z85.07 Personal history of malignant neoplasm of pancreas | CPT/HCPCS: 77063; 77067 ==

== ENCOUNTER 2022-04-06 18:53 | Inpatient (IN) | payer OTHER, MEDICAID ==
[2022-04-06] MEDS ORDERED: Morphine 2 MG/ML VIAL SLOW IVP PRN (19:51)
[2022-04-06] MEDS ORDERED: Lorazepam 2 MG/ML VIAL SLOW IVP PRN (19:53)
[2022-04-06] MEDS ORDERED: Ondansetron PF 4 MG/2 ML Vial IVP PRN (20:00)
[2022-04-06] MEDS ORDERED: Acetaminophen 650 MG Suppository PR PRN (20:00)
[2022-04-06] MEDS ORDERED: fentaNYL 50 mcg/hour Patch TD SCH (20:00)
[2022-04-06] MEDS ORDERED: diphenhydrAMINE 50 MG/ML VIAL IVP PRN (20:00)
[2022-04-06] MEDS ORDERED: Morphine 4 MG/ML VIAL SLOW IVP SCH (21:00)
[2022-04-06] MEDS ORDERED: Lorazepam 2 MG/ML VIAL SLOW IVP SCH (21:00)
[2022-04-06 21:54] VITALS: BP 40/20; TEMP 98.8
== END 2022-04-07 00:15 | disposition expired | DRG 951 ==
LOC: SURG A 18:53
PROVIDERS: ADMIT Family Medicine; ATTEND Family Medicine
DX: Z51.5 Encounter for palliative care (principal); K25.1 Acute gastric ulcer with perforation; C25.9 Malignant neoplasm of pancreas, unspecified; R64 Cachexia; N39.0 Urinary tract infection, site not specified; C78.7 Secondary malignant neoplasm of liver and intrahepatic bile duct; Z66 Do not resuscitate; E87.1 Hypo-osmolality and hyponatremia; I10 Essential (primary) hypertension; E87.6 Hypokalemia; K52.9 Noninfective gastroenteritis and colitis, unspecified; D64.9 Anemia, unspecified; E78.5 Hyperlipidemia, unspecified; J44.9 Chronic obstructive pulmonary disease, unspecified; F31.9 Bipolar disorder, unspecified; Z88.6 Allergy status to analgesic agent; Z79.899 Other long term (current) drug therapy; Z98.51 Tubal ligation status; Z80.9 Family history of malignant neoplasm, unspecified; Z87.891 Personal history of nicotine dependence
CPT/HCPCS: J2060; J2270